=== PATIENT | male | born 1985 | race Caucasian/White ===

== ENCOUNTER 2017-07-04 07:48 | Emergency (ER) | payer SELFPAY ==
[2017-07-04 08:32] LABS: Bilirubin Negative (Negative); Blood, Urine Negative (Negative); Glucose, Urine (Dipstick) Negative (Negative); Ketone, Urine Trace mg/dL (Negative); Nitrite Negative (Negative); Protein, Urine (Dipstick) Negative (Neg-Trace); Urobilinogen 0.2 mg/dL (0.2-1.0)
[2017-07-04 08:41] LABS: #Eosinphils 0.2 thou/uL (0.0-0.7); #Lymphocytes 1.1 thou/uL (1.20-3.40); #Monocytes 0.7 thou/uL (0.11-0.59); #Neutrophils 7.9 thou/uL (1.40-6.50); %Basophils 0.2 % (0.0-1.0); %Eosinophils 1.9 % (0.0-10.0); %Lymphocytes 11.4 % (21.0-51.0); Hematocrit 43.5 % (42.0-52.0); Mean Platelet Volume 6.7 fL (7.4-10.4); Red Blood Cell (RBC) Count 4.53 mill/uL (4.70-6.10)
[2017-07-04 09:08] LABS: ALT (SGPT) 120 U/L (8-55); AST (SGOT) 101 U/L (5-34); Alkaline Phosphatase 113 U/L (40-150); Anion Gap 15 mmol/L (10-20); BUN (Urea Nitrogen) 13 mg/dL (8.9-20.6); Bilirubin, Total 0.5 mg/dL (0.2-1.2); Calc. Creatinine Clearance 0 mL/min (70-130); Calcium 9.2 mg/dL (7.8-10.44); Carbon Dioxide 23 mmol/L (22-29); Chloride 103 mmol/L (98-107); Estimated GFR-MDRD Greater than 90; Globulin 3.4 g/dL (2.4-3.5); Lipase 49 U/L (8-78); Protein, Total 7.3 g/dL (6.0-8.3)
[2017-07-04] MEDS ORDERED: Ketorolac Tromethamine 30 MG/ML VIAL ONE (09:48)
[2017-07-04] MEDS ORDERED: Ondansetron HCl/PF 4 MG/2 ML Vial ONE (09:48)
--- NOTE | 2017-07-04 10:32 | CT ---
CT ABDOMEN AND PELVIS WITH IV CONTRAST: Date: 07/04/17 HISTORY: Abdominal pain, diarrhea, nausea, and fever. FINDINGS: The lung bases are clear. The liver, spleen, pancreas, adrenal glands, and kidneys are normal. No ca lcified gallstones are seen. No free air is noted. A normal appearing appendix is present. There are multiple enlarged and prominent mesenteric lymph n odes, particularly in the ileocecal chain. A small amount of fluid is seen in the right lower quadra nt. No acute osseous abnormalities are identified. IMPRESSION: 1. No evidence of appendicitis. 2. Mesenteric adenitis. POS: [facility]
[2017-07-04] MEDS ORDERED: ISOVUE-370 76%-LOCM 1 ML ONE (16:00)
--- NOTE | 2017-07-05 07:37 | CT ---
CT ABDOMEN AND PELVIS WITH IV CONTRAST: Date: 07/04/17 HISTORY: Abdominal pain, nausea and vomiting. FINDINGS: The lung bases are clear. The liver, spleen, pancreas, adrenal glands, and left kidney are normal. A tiny nonobstructing calculus is seen in the right kidney. No calcified gallstones are noted. No free air is identified. There is a small amount of free fluid in the right lower quadrant. A norm al appearing appendix is seen. There are prominent enlarged lymph nodes in the mesentery, particular ly in the ileocecal chain. No acute osseous abnormalities are identified. IMPRESSION: 1. No evidence of appendicitis. 2. Mesenteric adenitis. 3. Tiny nonobstructing right renal calculus. POS: [facility]
== END 2017-07-04 11:44 | disposition home or self-care (01) ==
LOC: ERS 07:48
DX: R11.2 Nausea with vomiting, unspecified (principal); R19.7 Diarrhea, unspecified; F17.210 Nicotine dependence, cigarettes, uncomplicated; F41.9 Anxiety disorder, unspecified
CPT/HCPCS: 36415; 74177; 80053; 81003; 83690; 85025; 96361; 96374; 96375; J1885; J2405

== ENCOUNTER 2018-02-14 08:40 | Emergency (ER) | payer SELFPAY ==
[2018-02-14] MEDS ORDERED: Acetaminophen 325 MG/10.15 ML UDCUP ONE (09:12)
[2018-02-14] MEDS ORDERED: Dexamethasone 4 mg/ml Vial ONE (09:57)
[2018-02-14] MEDS ORDERED: Lidocaine Viscous Sol 2% 15 ml UD Cup ONE (09:57)
[2018-02-14] MEDS ORDERED: Mag-Al 1200 mg/1200 mg/30 ML UDCUP ONE (09:57)
== END 2018-02-14 10:22 | disposition home or self-care (01) ==
LOC: ERS 08:40
DX: J02.9 Acute pharyngitis, unspecified (principal); F41.9 Anxiety disorder, unspecified; F17.210 Nicotine dependence, cigarettes, uncomplicated
CPT/HCPCS: 87081; 87430; 99283; J1100

== ENCOUNTER 2018-02-15 12:59 | Emergency (ER) | payer SELFPAY ==
[~2018-02-15 12:59] MED LIST: ISOVUE-370 76%-LOCM 1 ML ONE
[2018-02-15] MEDS ORDERED: Ketorolac Tromethamine 30 MG/ML VIAL ONE (13:58)
[2018-02-15] MEDS ORDERED: Lidocaine Viscous Sol 2% 15 ml UD Cup ONE (13:58)
[2018-02-15] MEDS ORDERED: Ondansetron ODT 4 MG TAB ONE (14:30)
[2018-02-15] MEDS ORDERED: Bicillin LA 1.2 MILLION UNITS/2 ML SYRINGE IM SCH (14:30)
[2018-02-15 14:51] LABS: #Neutrophils 8.1 thou/uL (1.40-6.50); %Basophils 0.2 % (0.0-1.0); %Eosinophils 0.4 % (0.0-10.0); %Lymphocytes 10.2 % (21.0-51.0); %Monocytes 9.8 % (0.0-10.0); %Neutrophils 79.4 % (42.0-75.0); Mean Corpuscular HGB CONC 35.1 g/dL (32.0-36.0); Mean Corpuscular Hemoglobin 33.3 pg (27.0-31.0); Mean Corpuscular Volume 94.9 fl (80.0-94.0); Mean Platelet Volume 6.7 fL (7.4-10.4); Platelet Count 227 thou/uL (130-400); RBC Distribution Width 11.8 % (11.5-14.5); White Blood Cell (WBC) Count 10.3 thou/uL (4.8-10.8)
--- NOTE | 2018-02-15 14:52 | RAD ---
2 VIEWS CHEST: Date: 02/15/18 COMPARISON: 08/29/14. HISTORY: Fever and cough. FINDINGS: Two views of the chest show normal sized cardiomediastinal silhouette. There is no evidence of consol idation, mass, or pleural effusion. The bones are unremarkable. IMPRESSION: No evidence of acute cardiopulmonary disease. POS: [facility]
--- NOTE | 2018-02-15 15:00 | CT ---
POSTCONTRAST SOFT TISSUE NECK CT: Date: 02/15/18 HISTORY: Fever. Neck swelling. Evaluate for peritonsillar abscess. Sore throat. Pain. COMPARISON: None. TECHNIQUE: Postcontrast soft tissue neck CT is performed in the axial plane. Reformatted images are submitted fo r interpretation. FINDINGS: Visualized brain parenchyma is unremarkable. Visualized orbits and paranasal sinuses are unremarkable. Aerodigestive tract is patent. There is mild edema and fullness involving bilateral palatine tonsils, as well as the lingual tonsils. No evidence of a peritonsillar abscess. No obvious masses in the ora l cavity. Midline fatty raphe of the tongue is preserved. Epiglottis normal caliber. Preepiglottic fa t is preserved. There is a minimal amount of fluid in the prevertebral space. Symmetric attenuation of the parotid and submandibular glands. Symmetric attenuation of sternocleidom astoid muscles. Thyroid gland is unremarkable. Grossly, the great vessels of the neck are patent. Cervical spine vertebral body height is maintained. There is no fracture. Varying degrees of central canal stenosis and foraminal narrowing on the basis of degenerative change. Enlarged right Level II lymph node measuring 2.2 x 2.3 cm and 1.8 x 1.7 cm. Enlarged left Level II ly mph node measuring 1.7 x 1.8 cm. Additional scattered nonspecific lymph nodes are noted. IMPRESSION: 1. Edema involving the Waldeyer's ring, as well as palatine tonsils suggesting reactive change. No C T evidence of a peritonsillar abscess. 2. Enlarged bilateral soft tissue neck Level II lymph nodes, likely reactive. 3. Trace amount of fluid in the prevertebral space at the C3-C4 level. POS: [facility]
[2018-02-15 15:01] LABS: ALT (SGPT) 156 U/L (8-55); AST (SGOT) 106 U/L (5-34); Albumin 4.4 g/dL (3.5-5.0); Alkaline Phosphatase 94 U/L (40-150); Anion Gap 16 mmol/L (10-20); BUN (Urea Nitrogen) 18 mg/dL (8.9-20.6); Bilirubin, Total 0.7 mg/dL (0.2-1.2); Calc. Creatinine Clearance 0 mL/min (70-130); Calcium 9.3 mg/dL (7.8-10.44); Carbon Dioxide 24 mmol/L (22-29); Chloride 98 mmol/L (98-107); Estimated GFR-MDRD 76; Globulin 3.4 g/dL (2.4-3.5); Glucose 111 mg/dL (70-105); Potassium 3.9 mmol/L (3.5-5.1); Protein, Total 7.8 g/dL (6.0-8.3); Sodium 134 mmol/L (136-145)
[2018-02-15] MEDS ORDERED: Dexamethasone 10 MG/ML VIAL ONE (15:49)
[2018-02-15] MEDS ORDERED: Acetaminophen 500 MG TAB ONE (16:12)
== END 2018-02-15 16:21 | disposition home or self-care (01) ==
LOC: ERS 12:59
DX: J02.9 Acute pharyngitis, unspecified (principal); F17.210 Nicotine dependence, cigarettes, uncomplicated; F41.9 Anxiety disorder, unspecified
CPT/HCPCS: 70491; 71046; 80053; 85025; 85652; 86140; 96361; 96372; 96374; 96375; J0561; J1100; J1885; Q0162

== ENCOUNTER 2018-02-20 08:07 | Emergency (ER) | payer SELFPAY ==
[2018-02-20 08:37] LABS: Hemoglobin 14.1 g/dL (14.0-18.0); Mean Corpuscular HGB CONC 32.8 g/dL (32.0-36.0); Mean Corpuscular Hemoglobin 31.5 pg (27.0-31.0); Mean Corpuscular Volume 96.1 fl (80.0-94.0); Mean Platelet Volume 6.5 fL (7.4-10.4); Platelet Count 415 thou/uL (130-400); RBC Distribution Width 11.8 % (11.5-14.5); Red Blood Cell (RBC) Count 4.48 mill/uL (4.70-6.10); White Blood Cell (WBC) Count 8.7 thou/uL (4.8-10.8)
[2018-02-20 08:48] LABS: ALT (SGPT) 155 U/L (8-55); AST (SGOT) 53 U/L (5-34); Albumin 4.2 g/dL (3.5-5.0); Alkaline Phosphatase 106 U/L (40-150); Anion Gap 15 mmol/L (10-20); BUN (Urea Nitrogen) 19 mg/dL (8.9-20.6); Bilirubin, Total 1.1 mg/dL (0.2-1.2); Calc. Creatinine Clearance 0 mL/min (70-130); Calcium 9.5 mg/dL (7.8-10.44); Carbon Dioxide 26 mmol/L (22-29); Chloride 100 mmol/L (98-107); Estimated GFR-MDRD 88; Globulin 3.9 g/dL (2.4-3.5); Glucose 105 mg/dL (70-105); Potassium 3.8 mmol/L (3.5-5.1); Protein, Total 8.1 g/dL (6.0-8.3); Sodium 137 mmol/L (136-145)
[2018-02-20 08:56] LABS: Band 6 % (5-11); Eosinophils 2 % (0-10); Lymphocytes 22 % (21-51); MDiff Complete? YES; Monocytes 2 % (0-10); Neutrophil 63 % (42-75); PLT Morphology Comment Appears Increased; RBC Morphology Normal; Reactive Lymphocytes 4 % (0-10)
[2018-02-20 10:21] LABS: MONO NEGATIVE CONTROL ZONE White (Negative) (White); MONO POSITIVE CONTROL Pink Line (Positive) (PINK/RED); Mononucleosis POSITIVE (NEGATIVE)
[2018-02-20] MEDS ORDERED: Ketorolac Tromethamine 30 MG/ML VIAL ONE (11:01)
[2018-02-20] MEDS ORDERED: Dexamethasone 4 mg/ml Vial ONE (11:01)
== END 2018-02-20 11:22 | disposition home or self-care (01) ==
LOC: ERS 08:07
DX: B27.90 Infectious mononucleosis, unspecified without complication (principal); F41.9 Anxiety disorder, unspecified; F17.210 Nicotine dependence, cigarettes, uncomplicated; Z79.899 Other long term (current) drug therapy
CPT/HCPCS: 36415; 80053; 85025; 86308; 96372; J1100; J1885

== ENCOUNTER 2022-11-06 21:24 | Emergency (ER) | payer SELFPAY ==
[2022-11-06] MEDS ORDERED: Boostrix 0.5 ML (Tdap) VIAL (>/=7 yrs of age) ONE (21:45)
[2022-11-06] MEDS ORDERED: HYDROcodone/Acetaminophen 5/325 mg Tablet ONE (22:55)
== END 2022-11-06 23:06 | disposition home or self-care (01) ==
LOC: ERS 21:24
DX: S91.032A Puncture wound without foreign body, left ankle, initial encounter (principal); F17.210 Nicotine dependence, cigarettes, uncomplicated; W34.00XA Accidental discharge from unspecified firearms or gun, initial encounter
CPT/HCPCS: 90471; 90715; G0390

== ENCOUNTER 2023-11-06 07:10 | Emergency (ER) | payer OTHER, SELFPAY ==
[2023-11-06 07:56] LABS: #Basophils 0.1 thou/uL (0.0-0.2); #Eosinphils 0.5 thou/uL (0.0-0.7); #Monocytes 0.7 thou/uL (0.11-0.59); #Neutrophils 5.6 thou/uL (1.40-6.50); %Basophils 0.9 % (0.0-1.0); %Eosinophils 4.8 % (0.0-10.0); %Lymphocytes 26.3 % (21.0-51.0); %Monocytes 7.1 % (0.0-10.0); %Neutrophils 59.9 % (42.0-75.0); Mean Corpuscular HGB CONC 34.1 g/dL (32.0-36.0); Mean Corpuscular Volume 96.7 fl (78.0-98.0); Mean Platelet Volume 9.1 fL (7.4-10.4); Platelet Count 290 10x3/uL (130-400); RBC Distribution Width 11.7 % (11.5-14.5); Red Blood Cell (RBC) Count 4.24 mill/uL (4.70-6.10); White Blood Cell (WBC) Count 9.4 10x3/uL (4.8-10.8)
[2023-11-06 08:18] LABS: ALT (SGPT) 58 U/L (8-55); AST (SGOT) 26 U/L (5-34); Albumin 4.6 g/dL (3.5-5.0); Alkaline Phosphatase 76 U/L (40-110); Anion Gap 14 mmol/L (10-20); BUN (Urea Nitrogen) 16 mg/dL (8.9-20.6); Bilirubin, Total 0.6 mg/dL (0.2-1.2); Calc. Creatinine Clearance 0 mL/min (70-130); Calcium 9.2 mg/dL (7.8-10.44); Carbon Dioxide 24 mmol/L (22-29); Chloride 104 mmol/L (98-107); Estimated GFR 95; Globulin 2.8 g/dL (2.4-3.5); Glucose 125 mg/dL (70-105); Lipase 25 U/L (8-78); Magnesium 1.9 mg/dL (1.6-2.6); Potassium 4.1 mmol/L (3.5-5.1); Protein, Total 7.4 g/dL (6.0-8.3); Sodium 138 mmol/L (136-145)
[2023-11-06 08:22] LABS: Troponin I Less than 0.010 ng/mL (< 0.028)
== END 2023-11-06 08:46 | disposition home or self-care (01) ==
LOC: ERS 07:10
DX: I10 Essential (primary) hypertension (principal); Z87.891 Personal history of nicotine dependence
CPT/HCPCS: 36415; 71045; 80053; 83690; 83735; 83880; 84484; 85025; 93005

== ENCOUNTER 2023-11-13 16:19 | Emergency (ER) | payer OTHER ==
[2023-11-13 17:23] LABS: #Basophils 0.1 thou/uL (0.0-0.2); #Eosinphils 0.3 thou/uL (0.0-0.7); #Monocytes 0.8 thou/uL (0.11-0.59); #Neutrophils 8.7 thou/uL (1.40-6.50); %Basophils 0.7 % (0.0-1.0); %Eosinophils 2.6 % (0.0-10.0); %Lymphocytes 18.4 % (21.0-51.0); %Monocytes 6.7 % (0.0-10.0); %Neutrophils 71.1 % (42.0-75.0); Hematocrit 44.2 % (42.0-52.0); Hemoglobin 14.9 g/dL (14.0-18.0); Mean Corpuscular HGB CONC 33.7 g/dL (32.0-36.0); Mean Corpuscular Hemoglobin 32.6 pg (27.0-31.0); Mean Corpuscular Volume 96.7 fl (78.0-98.0); Mean Platelet Volume 8.9 fL (7.4-10.4); Platelet Count 320 10x3/uL (130-400); RBC Distribution Width 11.6 % (11.5-14.5); Red Blood Cell (RBC) Count 4.57 mill/uL (4.70-6.10); White Blood Cell (WBC) Count 12.2 10x3/uL (4.8-10.8)
[2023-11-13 17:45] LABS: ALT (SGPT) 60 U/L (8-55); AST (SGOT) 29 U/L (5-34); Albumin 4.9 g/dL (3.5-5.0); Alkaline Phosphatase 91 U/L (40-110); Anion Gap 15 mmol/L (10-20); BUN (Urea Nitrogen) 18 mg/dL (8.9-20.6); Bilirubin, Total 0.8 mg/dL (0.2-1.2); Calc. Creatinine Clearance 0 mL/min (70-130); Calcium 9.7 mg/dL (7.8-10.44); Carbon Dioxide 23 mmol/L (22-29); Chloride 105 mmol/L (98-107); Estimated GFR 83; Globulin 2.8 g/dL (2.4-3.5); Glucose 108 mg/dL (70-105); Lipase 21 U/L (8-78); Magnesium 2.1 mg/dL (1.6-2.6); Potassium 4.2 mmol/L (3.5-5.1); Protein, Total 7.7 g/dL (6.0-8.3); Sodium 139 mmol/L (136-145)
[2023-11-13 17:50] LABS: Troponin I Less than 0.010 ng/mL (< 0.028)
== END 2023-11-13 18:52 | disposition home or self-care (01) ==
LOC: ERS 16:19
DX: I10 Essential (primary) hypertension (principal); Z55.6 Problems related to health literacy; Z87.891 Personal history of nicotine dependence; Z79.899 Other long term (current) drug therapy
CPT/HCPCS: 36415; 71046; 80053; 83690; 83735; 83880; 84484; 85025; 93005